=== PATIENT | female | born 1940 | race Caucasian/White ===

== ENCOUNTER → 2018-07-31 | Outpatient (REF) | payer MEDICARE ==
[~2018-07-31] MED LIST: NOVOLIN 70/30 SC
[2018-07-31 10:37] LABS: CREATININE 1.2 mg/dL (0.5-1.0); POTASSIUM 4.5 mmol/l (3.5-5.1)
== END | disposition home or self-care (01) ==
LOC: LAB 09:23
PROVIDERS: ATTEND Internal Medicine
DX: E11.29 Type 2 diabetes mellitus with other diabetic kidney complication (principal)

== ENCOUNTER 2018-08-22 09:52 | Emergency (ER) | payer MEDICARE ==
[~2018-08-22] VITALS: Ht 149.9 cm; Wt 72.0 kg
[2018-08-22] MEDS ORDERED: NOVOLIN 70/30 SC ×2 (10:02)
[2018-08-22 12:20] VITALS: BP 140/69
== END 2018-08-22 12:20 | disposition home or self-care (01) ==
LOC: ED 09:52
DX: S96.912A Strain of unspecified muscle and tendon at ankle and foot level, left foot, initial encounter (principal); M25.552 Pain in left hip; E11.9 Type 2 diabetes mellitus without complications; W18.39XA Other fall on same level, initial encounter; Y92.009 Unspecified place in unspecified non-institutional (private) residence as the place of occurrence of the external cause